=== PATIENT | male | born 1990 | race Caucasian/White ===

== ENCOUNTER 2016-12-22 16:33 | Emergency (ER) | payer SELFPAY ==
[~2016-12-22] VITALS: Ht 165.1 cm; Wt 89.0 kg
[~2016-12-22 16:33] MED LIST: BEN50 PO; DIVA500T7 PO; NICO-512 TD; RISP3TAB25 PO
[2016-12-22 16:47] VITALS: Ht 165.1 cm; Wt 89.0 kg
== END 2016-12-22 18:08 | disposition left against medical advice (07) ==
LOC: FTE 16:33
DX: Z53.21 Procedure and treatment not carried out due to patient leaving prior to being seen by health care provider (principal)

== ENCOUNTER 2016-12-22 18:52 | Emergency (ER) | payer OTHER ==
[~2016-12-22] VITALS: Ht 162.6 cm; Wt 123.5 kg
[2016-12-22 19:01] VITALS: Ht 162.6 cm; Wt 123.5 kg
--- NOTE | 2016-12-23 00:24 | EN ---
Date/Time of Note Date/Time of Note DATE: 12/23/16 TIME: 00:23 ER Progress Note Patient eloped prior to evaluation by myself. BEN KAMARA MD Dec 23, 2016 00:24
== END 2016-12-22 20:56 | disposition left against medical advice (07) ==
LOC: FTE 18:52 → E/R 20:56
DX: Z53.21 Procedure and treatment not carried out due to patient leaving prior to being seen by health care provider (principal)